=== PATIENT | female | born 1945 ===

== ENCOUNTER 2021-07-01 10:15 | Inpatient (IN) | payer OTHER ==
[~2021-07-01] VITALS: Ht 157.5 cm; Wt 68.0 kg
[2021-07-01] MEDS ORDERED: NAMENDA10 MG PO (12:03)
[2021-07-01] MEDS ORDERED: TOPROL XL100 M1 PO (12:03)
[2021-07-01] MEDS ORDERED: ZESTRIL20 MG PO (12:03)
[2021-07-01] MEDS ORDERED: TEMAZEPAM15 MG PO (12:04)
[2021-07-01] MEDS ORDERED: LIPITOR40 M1 PO (12:04)
[2021-07-01] MEDS ORDERED: NP THYROID15 MG PO (12:04)
[2021-07-01] MEDS ORDERED: PANTOPRAZOLE SO40 MG PO (12:04)
[2021-07-01] MEDS ORDERED: GABAPENTIN800 M1 PO (12:05)
[2021-07-01] MEDS ORDERED: ZIPSOR25 MG PO (12:05)
[2021-07-03] MEDS ORDERED: COLACE100 MG PO (10:37)
[2021-07-03] MEDS ORDERED: CARAFATE1 GM/10 ML PO (10:39)
[2021-07-03] MEDS ORDERED: PERCOCET 5-3251 EACH PO (10:39)
[2021-07-03] MEDS ORDERED: MEDROLPACK PO (10:39)
[2021-07-03] MEDS ORDERED: NEURONTIN800 MG PO (10:39)
[2021-07-03] MEDS ORDERED: AMOX-CLAV 875-1 EACH PO (10:39)
[2021-07-03] MEDS ORDERED: ZOFRAN8 MG PO (10:39)
== END 2021-07-05 14:59 | disposition home or self-care (01) | DRG 455 ==
LOC: PED 07-03 08:30 → O/R 07-03 08:30 → SURH 07-03 10:15 → PED 07-03 21:57
PROVIDERS: ADMIT Orthopaedic Surgery Orthopaedic Surgery of the Spine; ATTEND Orthopaedic Surgery Orthopaedic Surgery of the Spine
PROC: 0SG1071 Fusion of 2 or more Lumbar Vertebral Joints with Autologous Tissue Substitute, Posterior Approach, Posterior Column, Open Approach (ICD-10-PCS; 2021-07-03)
PROC: 0ST20ZZ Resection of Lumbar Vertebral Disc, Open Approach (ICD-10-PCS; 2021-07-03)
PROC: 0SG10A0 Fusion of 2 or more Lumbar Vertebral Joints with Interbody Fusion Device, Anterior Approach, Anterior Column, Open Approach (ICD-10-PCS; principal; 2021-07-03 17:45)
DX: M48.062 Spinal stenosis, lumbar region with neurogenic claudication (principal); M41.56 Other secondary scoliosis, lumbar region; M96.1 Postlaminectomy syndrome, not elsewhere classified; I10 Essential (primary) hypertension; E11.9 Type 2 diabetes mellitus without complications

== ENCOUNTER 2021-07-17 13:35 | Emergency (ER) | payer OTHER ==
[~2021-07-17] VITALS: Ht 157.5 cm; Wt 113.4 kg
[~2021-07-17 13:35] MED LIST: AMOX-CLAV 875-1 EACH PO; CARAFATE1 GM/10 ML PO; COLACE100 MG PO; GABAPENTIN800 M1 PO; LIPITOR40 M1 PO; MEDROLPACK PO; NAMENDA10 MG PO; NEURONTIN800 MG PO; NP THYROID15 MG PO; PANTOPRAZOLE SO40 MG PO; PERCOCET 5-3251 EACH PO; TEMAZEPAM15 MG PO; TOPROL XL100 M1 PO; ZESTRIL20 MG PO; ZIPSOR25 MG PO; ZOFRAN8 MG PO
== END 2021-07-17 18:17 | disposition home or self-care (01) ==
LOC: ER 13:35
DX: S30.0XXA Contusion of lower back and pelvis, initial encounter (principal); W18.39XA Other fall on same level, initial encounter; Y93.9 Activity, unspecified; Y92.531 Health care provider office as the place of occurrence of the external cause; Y99.9 Unspecified external cause status; K29.60 Other gastritis without bleeding; Z88.8 Allergy status to other drugs, medicaments and biological substances